=== PATIENT | female | born 1955 | race Caucasian/White ===

== ENCOUNTER 2023-04-14 18:58 | Observation (INO) | payer MEDICARE ==
[2023-04-14] MEDS ORDERED: Narcan 0.4 MG/ML IV ONE (19:00)
[2023-04-14] MEDS ORDERED: Narcan 0.4 MG/ML ONE (19:05)
[2023-04-14] MEDS ORDERED: Zofran 4 MG/2 ML VIAL IV ONE (19:14)
--- NOTE | 2023-04-14 19:14 | ERPHSYRPT ---
- History of Present Illness Time Seen by Provider: 04/14/23 19:10 Source: patient, EMS Exam Limitations: clinical condition Physician History: This is a 68-year-old white female patient brought into the emergency department by the paramedics. They provided independent medical history. Patient was called out to go home where this patient is living because of an unresponsive patient. Paramedics brought the patient into the emergency department where she is still mildly lethargic but does wake up to answer questions. She denies illicit drug use. She states that she took her usual medication of Fioricet but no other medications. She is adamant that she is not suicidal or homicidal however the note that was a left and brought in by the paramedics states and is interpreted by me, as a suicidal note. Patient states that in August 2022 she fell hitting her head and there are 2 subdural hematomas. Since that period of time she has had a shunt placed and periodically has cerebrospinal fluid coming from her right nostril which she had today. She did fall and hit her head on the stairs today. Patient is new in town having moved here approximately the [facility] week of March 2023. Timing/Duration: today Severity: moderate Associated Symptoms: weakness, other (Lethargy) Allergies/Adverse Reactions: metronidazole [From Flagyl] Allergy (Severe, Verified 04/14/23 20:32) ceftriaxone [From Rocephin] Allergy (Unknown, Verified 04/14/23 20:38) pt reports an allergy to rocephin, states she is unsure of the reaction Macrolide Antibiotics Allergy (Unknown, Verified 04/14/23 20:32) Sulfa (Sulfonamide Antibiotics) Allergy (Unknown, Verified 04/14/23 19:56) Home Medications: Butalb/Acetaminophen/Caffeine [Apitfk-Wldnlrru-Qhms 50-325-40] 1 each PO TID PRN 04/15/23 [History] Cyanocobalamin 1000 Mcg/ml [Cyanocobalamin B-12 1000 MCG/ML] 1,000 mcg IJ UD 04/15/23 [History] EPINEPHrine [Auvi-Q] 1 pen IJ UD 04/15/23 [History] Sumatriptan Succinate [Imitrex] 6 mg SQ UD PRN 04/15/23 [History] Travel Risk - International Travel Have you traveled outside of the country in past 3 weeks: No - Coronavirus Screening Are you exhibiting any of the following symptoms?: No Close contact with a COVID-19 positive Pt in past 14-21 Days: No - Review of Systems Constitutional: No Symptoms Eyes: No Symptoms Ears, Nose, & Throat: No Symptoms Respiratory: No Symptoms Cardiac: No Symptoms Abdominal/Gastrointestinal: No Symptoms Genitourinary Symptoms: No Symptoms Musculoskeletal: No Symptoms Skin: No Symptoms Neurological: Lethargy (Mild and arousable) Psychological: Anxiety, Depression Endocrine: No Symptoms Hematologic/Lymphatic: No Symptoms Immunological/Allergic: No Symptoms All Other Systems: Reviewed and Negative - Past Medical History Pertinent Past Medical History: Yes - Past Surgical History Past Surgical History: Yes - Nursing Vital Signs Nursing Vital Signs: Initial Vital Signs Pulse Rate 79 04/14/23 19:02 Respiratory Rate 11 L 04/14/23 19:02 Blood Pressure 179/92 04/14/23 19:02 O2 Sat by Pulse Oximetry 97 04/14/23 19:02 Pain Scale Pain Intensity 0 - Physical Exam General Appearance: no apparent distress, alert, lethargy (Mild but arousable) Eye Exam: PERRL/EOMI, eyes nml inspection Ears, Nose, Throat Exam: normal ENT inspection, TMs normal, moist mucous membranes Neck Exam: normal inspection, non-tender, supple, full range of motion Respiratory Exam: normal breath sounds, lungs clear, airway intact, No chest tenderness, No respiratory distress Cardiovascular Exam: regular rate/rhythm, normal heart sounds, normal peripheral pulses Gastrointestinal/Abdomen Exam: soft, normal bowel sounds, No tenderness Pelvic Exam: not done Rectal Exam: not done Back Exam: normal inspection, normal range of motion, No CVA tenderness, No vertebral tenderness Extremity Exam: normal inspection, normal range of motion, pelvis stable Neurologic Exam: oriented x 3, cooperative, 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, other (Rousable but mildly lethargic) Lymphatic Exam: No adenopathy SpO2 Interpretation: normal O2 Delivery: Room Air - Course Nursing assessment & vital signs reviewed: Yes EKG Interpreted by Me: RATE ([id number]), Sinus Rhythm, NORMAL AXIS, NORMAL INTERVALS, NORMAL QRS, NORMAL ST-T, Other (No acute ischemic changes on today's twelve-lead EKG.) Ordered Tests: Medication Summary Discontinued Medications Generic Name Dose Route Start Last Admin Trade Name Freq PRN Reason Stop Dose Admin Acetaminophen 325 mg 04/15/23 01:37 Acetaminophen 325 Mg Tablet PO 05/15/23 01:36 Q4H PRN PRN PAIN, FEVER, HEADACHE Acetaminophen 650 mg 04/15/23 02:05 Acetaminophen 325 Mg Tablet PO 05/15/23 02:04 Q4H PRN PRN PAIN, FEVER, HEADACHE Hydrocodone Bitart/Acetaminophen 1 tab 04/14/23 22:00 04/14/23 22:04 Hydrocodone/Apap 5/325 1 Tab Tablet PO 04/14/23 22:01 1 tab STAT ONE Administration Hydrocodone Bitart/Acetaminophen Confirm 04/14/23 22:03 Hydrocodone/Apap 5/325 1 Tab Tablet Administered 04/14/23 22:04 Dose 1 tab .ROUTE .STK-MED ONE Hydrocodone Bitart/Acetaminophen 1 tab 04/15/23 02:05 Hydrocodone/Apap 5/325 1 Tab Tablet PO 04/20/23 02:04 QID PRN PRN PAIN Cyanocobalamin 1,000 mcg 04/24/23 10:00 Cyanocobalamin 1000 Mcg/Ml Vial IJ 05/24/23 09:59 UD DANI Enoxaparin Sodium 40 mg 04/15/23 10:00 Enoxaparin Sodium 40 Mg/0.4 Ml Syringe SQ 05/15/23 09:59 DAILY DANI Sodium Chloride 1,000 mls @ 100 mls/hr 04/14/23 19:15 04/14/23 19:50 Sodium Chloride 0.9% 1000 Ml IV 05/14/23 19:14 100 mls/hr .Q10H DANI Administration Ceftriaxone Sodium/Dextrose 1 g in 50 mls @ 100 mls/hr 04/14/23 19:20 04/14/23 20:45 Rocephin 1 Gm-D5w 50 Ml Bag IV 04/14/23 19:49 Not Given STAT STA Ceftriaxone Sodium/Dextrose Confirm 04/14/23 19:48 Rocephin 1 Gm-D5w 50 Ml Bag Administered 04/14/23 19:49 Dose 1 g in 50 mls @ ud IV .STK-MED ONE Levofloxacin/Dextrose 500 mg in 100 mls @ 100 mls/hr 04/14/23 20:44 04/14/23 22:51 Levofloxacin 500mg/100ml D5w IV 04/14/23 21:43 Infused STAT STA Infusion Levofloxacin/Dextrose Confirm 04/14/23 20:47 Levofloxacin 500mg/100ml D5w Administered 04/14/23 20:48 Dose 500 mg in 100 mls @ ud IV .STK-MED ONE Sodium Chloride 1,000 mls @ 50 mls/hr 04/15/23 01:45 04/15/23 04:30 Sodium Chloride 0.9% 1000 Ml IV 05/15/23 01:44 Not Given .Q20H DANI Sodium Chloride 1,000 mls @ 30 mls/hr 04/15/23 02:05 04/15/23 03:46 Sodium Chloride 0.9% 1000 Ml IV 05/15/23 02:04 30 mls/hr .Q24H DANI Administration Sodium Chloride Confirm 04/14/23 19:48 Sodium Chloride 0.9% 1000 Ml Administered 04/14/23 19:49 Dose 1,000 mls @ ud .ROUTE .STK-MED ONE Labetalol HCl 10 mg 04/15/23 01:39 Labetalol Hcl 100 Mg/20 Ml Mdv IV 05/15/23 01:38 PRN PRN HYPERTENSION Metoprolol Tartrate 5 mg 04/15/23 00:09 04/15/23 00:34 Metoprolol Tartrate 5 Mg/5 Ml Vial IV 04/15/23 00:10 Not Given STAT ONE Metoprolol Tartrate Confirm 04/15/23 00:29 Metoprolol Tartrate 5 Mg/5 Ml Vial Administered 04/15/23 00:30 Dose 5 mg IV .STK-MED ONE Metoprolol Tartrate 5 mg 04/15/23 02:05 Metoprolol Tartrate 5 Mg/5 Ml Vial IV 05/15/23 02:04 Q4H PRN PRN ELEVATED BLOOD PRESSURE Miscellaneous Information 1 each 04/15/23 11:45 Medication Intervention 1 Each Each 05/15/23 11:44 .RN TO CHECK DANI Naloxone HCl Confirm 04/14/23 19:05 Naloxone Hcl 0.4 Mg/Ml Ml Administered 04/14/23 19:06 Dose 0.4 mg .ROUTE .STK-MED ONE Naloxone HCl 0.4 mg 04/14/23 19:00 04/14/23 19:00 Naloxone Hcl 0.4 Mg/Ml Ml IV 04/14/23 19:01 0.4 mg STAT ONE Administration Ondansetron HCl 4 mg 04/14/23 19:14 04/14/23 19:50 Ondansetron Hcl 4 Mg/2 Ml Vial IV 04/14/23 19:15 4 mg STAT ONE Administration Ondansetron HCl Confirm 04/14/23 19:48 Ondansetron Hcl 4 Mg/2 Ml Vial Administered 04/14/23 19:49 Dose 4 mg .ROUTE .STK-MED ONE Ondansetron HCl 4 mg 04/15/23 02:05 Ondansetron Hcl 4 Mg/2 Ml Vial IV 05/15/23 02:04 Q6H PRN PRN NAUSEA/VOMITING Potassium Chloride 20 meq 04/15/23 01:40 04/15/23 04:30 Potassium Chloride Tab 10 Meq Tab PO 04/15/23 01:41 Not Given STAT ONE Potassium Chloride 20 meq 04/15/23 03:49 04/15/23 03:52 Potassium Chloride Tab 10 Meq Tab PO 04/15/23 03:50 20 meq STAT ONE Administration Sumatriptan Succinate 6 mg 04/15/23 11:30 Sumatriptan Succinate 6 Mg/0.5 Ml Vial SQ 05/15/23 11:29 UD PRN PAIN Lab/Rad Data: Laboratory Result Diagrams 04/14/23 19:45 04/14/23 19:45 Laboratory Results 04/14/23 04/14/23 04/14/23 Range/Units 19:45 19:45 19:45 WBC 7.3 (4.0-10.5) x10^3/uL RBC 4.91 (4.1-5.4) x10^6/uL Hgb 14.2 (12.0-16.0) g/dL Hct 44.3 (35-47) % MCV 90.2 (78-100) fL MCH 28.9 (26-32) pg MCHC 32.1 (32-36) g/dL RDW 12.8 (11.5-14.0) % Plt Count 378 (150-450) x10^3/uL MPV 9.6 (7.5-11.0) fL Gran % 50.8 (36.0-66.0) % Immature Gran % (Auto) 0.4 (0.00-0.4) % Nucleat RBC Rel Count 0.0 (0.00-0.1) % Eos # (Auto) 0.44 (0-0.5) x10^3/uL Immature Gran # (Auto) 0.03 (0.00-0.03) x10^3u/L Absolute Lymphs (auto) 2.61 (1.0-4.6) x10^3/uL Absolute Monos (auto) 0.43 (0.0-1.3) x10^3/uL Absolute Nucleated RBC 0.00 (0.00-0.01) x10^3u/L Lymphocytes % 35.8 (24.0-44.0) % Monocytes % 5.9 (0.0-12.0) % Eosinophils % 6.0 H (0.00-5.0) % Basophils % 1.1 (0.0-0.4) % Absolute Granulocytes 3.71 (1.4-6.9) x10^3/uL Basophils # 0.08 (0-0.4) x10^3/uL Puncture Site pCO2 (35-45) mmHg pO2 (75-100) mmHg Base Excess (-2.0-2.0) O2 Saturation (94-100) g/dF ABG pH (7.35-7.45) ABG HCO3 (22-28) ABG O2 Sat (Measured) (95-100) % Juan Test A-a Gradient a/A Ratio Hemoglobin Carboxyhemoglobin (0.0-6.9) % THgb Methemoglobin (1.4-1.5) % Potassium 3.4 L (3.5-5.1) Temperature C POC O2 Flow Rate % Sodium 140 (137-145) mmol/L Chloride 106 (98-107) mmol/L Carbon Dioxide 25 (22-30) mmol/L Anion Gap 11.8 (5-15) MEQ/L BUN 9 (7-17) mg/dL Creatinine 0.56 (0.52-1.04) mg/dL Estimated GFR > 60.0 ML/MIN Glucose 107 H (74-106) mg/dL Calcium 8.8 (8.4-10.2) mg/dL Total Bilirubin 0.30 (0.2-1.3) mg/dL AST 20 (14-36) U/L ALT 18 (0-35) U/L Alkaline Phosphatase 106 (38-126) U/L Ammonia < 9 L (9-30) umol/L Serum Total Protein 6.6 (6.3-8.2) g/dL Albumin 3.8 (3.5-5.0) g/dL Urine Color (Yellow) Urine Appearance (Clear) Urine pH (4.6-8.0) Ur Specific [place] (1.005-1.030) Urine Protein (Negative) Urine Glucose (UA) (Negative) mg/dL Urine Ketones (Negative) Urine Blood (Negative) Urine Nitrite (Negative) Urine Bilirubin (Negative) Urine Urobilinogen (0.2) mg/dL Ur Leukocyte Esterase (Negative) U Hyaline Cast (Auto) (0-2) /LPF Urine Microscopic RBC (0-5) /HPF Urine Microscopic WBC (0-5) /HPF Ur Epithelial Cells (None Seen) /HPF Urine Bacteria (None Seen) /HPF Urine Culture Reflexed (NO) Salicylates 3.0 (2-20) mg/dL Urine Opiates Level (NEGATIVE) Ur Methadone (NEGATIVE) Acetaminophen < 10 L (10-30) ug/ml Urine Barbiturates (NEGATIVE) Ur Phencyclidine (PCP) (NEGATIVE) Urine Amphetamine (NEGATIVE) U Benzodiazepine Level (NEGATIVE) Urine Cocaine (NEGATIVE) Urine Marijuana (THC) (NEGATIVE) Ethyl Alcohol < 10 (0-10) mg/dL 04/14/23 04/14/23 04/14/23 Range/Units 19:22 19:21 19:13 WBC (4.0-10.5) x10^3/uL RBC (4.1-5.4) x10^6/uL Hgb (12.0-16.0) g/dL Hct (35-47) % MCV (78-100) fL MCH (26-32) pg MCHC (32-36) g/dL RDW (11.5-14.0) % Plt Count (150-450) x10^3/uL MPV (7.5-11.0) fL Gran % (36.0-66.0) % Immature Gran % (Auto) (0.00-0.4) % Nucleat RBC Rel Count (0.00-0.1) % Eos # (Auto) (0-0.5) x10^3/uL Immature Gran # (Auto) (0.00-0.03) x10^3u/L Absolute Lymphs (auto) (1.0-4.6) x10^3/uL Absolute Monos (auto) (0.0-1.3) x10^3/uL Absolute Nucleated RBC (0.00-0.01) x10^3u/L Lymphocytes % (24.0-44.0) % Monocytes % (0.0-12.0) % Eosinophils % (0.00-5.0) % Basophils % (0.0-0.4) % Absolute Granulocytes (1.4-6.9) x10^3/uL Basophils # (0-0.4) x10^3/uL Puncture Site RIGHT RADIAL pCO2 39 (35-45) mmHg pO2 102 H (75-100) mmHg Base Excess 2.3 H (-2.0-2.0) O2 Saturation 97.3 (94-100) g/dF ABG pH 7.44 (7.35-7.45) ABG HCO3 26.5 (22-28) ABG O2 Sat (Measured) 98.8 (95-100) % Juan Test YES A-a Gradient -1 a/A Ratio 1.01 Hemoglobin 14.1 Carboxyhemoglobin 0.4 (0.0-6.9) % THgb Methemoglobin 1.1 L (1.4-1.5) % Potassium 3.4 L (3.5-5.1) Temperature 37.0 C POC O2 Flow Rate 21 % Sodium (137-145) mmol/L Chloride (98-107) mmol/L Carbon Dioxide (22-30) mmol/L Anion Gap (5-15) MEQ/L BUN (7-17) mg/dL Creatinine (0.52-1.04) mg/dL Estimated GFR ML/MIN Glucose (74-106) mg/dL Calcium (8.4-10.2) mg/dL Total Bilirubin (0.2-1.3) mg/dL AST (14-36) U/L ALT (0-35) U/L Alkaline Phosphatase (38-126) U/L Ammonia (9-30) umol/L Serum Total Protein (6.3-8.2) g/dL Albumin (3.5-5.0) g/dL Urine Color Yellow (Yellow) Urine Appearance Clear (Clear) Urine pH 6.5 (4.6-8.0) Ur Specific [place] 1.010 (1.005-1.030) Urine Protein Negative (Negative) Urine Glucose (UA) Negative (Negative) mg/dL Urine Ketones Negative (Negative) Urine Blood Moderate A (Negative) Urine Nitrite Negative (Negative) Urine Bilirubin Negative (Negative) Urine Urobilinogen 0.2 (0.2) mg/dL Ur Leukocyte Esterase Negative (Negative) U Hyaline Cast (Auto) NONE SEEN (0-2) /LPF Urine Microscopic RBC 11-20 A (0-5) /HPF Urine Microscopic WBC 0-2 (0-5) /HPF Ur Epithelial Cells None Seen (None Seen) /HPF Urine Bacteria None Seen (None Seen) /HPF Urine Culture Reflexed ORDERED SEPARATELY (NO) Salicylates (2-20) mg/dL Urine Opiates Level NEGATIVE (NEGATIVE) Ur Methadone NEGATIVE (NEGATIVE) Acetaminophen (10-30) ug/ml Urine Barbiturates POSITIVE (NEGATIVE) Ur Phencyclidine (PCP) NEGATIVE (NEGATIVE) Urine Amphetamine NEGATIVE (NEGATIVE) U Benzodiazepine Level NEGATIVE (NEGATIVE) Urine Cocaine NEGATIVE (NEGATIVE) Urine Marijuana (THC) NEGATIVE (NEGATIVE) Ethyl Alcohol (0-10) mg/dL - Progress Progress: improved Progress Note: 04/14/23 19:44 This patient's medical issue is 1 of moderate to high complexity. Level complexity in the work-up performed is based on the patient's past medical history, review of the patient's medication list, review of the patient's drug allergy list, history of present illness, and physical findings on examination. This patient's work-up includes a CT scan of the head, twelve-lead EKG, placement of intravenous line, infusion of normal saline solution, urinalysis, placement of Perez catheter, CBC, CMP, ammonia level. Patient is IDed into the emergency department by law enforcement. Patient will likely need to be placed in a medpsych unit facility. 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 This occurred again today. I wanted to provide her with prophylaxis treatment with Rocephin. Patient states that she was not certain but she thinks that she cannot take Rocephin. She is fine with quinolones and Keflex. Therefore, we will not provide her with Rocephin intravenously but provide her with Levaquin 500 mg intravenously. 04/14/23 21:[address] scan of the cervical spine without contrast was interpreted by the radi ologist and I reviewed the impression. There is minimal degenerative disc disease present. There is no evidence of acute fracture or subluxation. CT scan of the head without contrast was performed. There are no comparison films. This study was interpreted by the radiologist. There is evidence of a right ventricular shunt catheter in place. There is no obvious complications. There is pansinusitis present. There are no acute intracranial abnormalities mentioned by the radiologist 04/15/23 01:33 This patient was evaluated by [facility] via laboratory data review, history and physical exam review by mental health provider Kasandra and staffed by Dr. Maloney. They feel that the patient does have suicidal ideation and do not want the patient to go home at this time. They feel the patient is medically unstable secondary to blood pressure readings from 150s to 170s systolically. They would like the patient to be placed in observation and blood pressure under better control. I spoke with telehospitalist Dr. Farmer who agrees to place the patient in observation. Patient will be reevaluated by [facility] in the morning of 04/15/2023. Counseled pt/family regarding: lab results, diagnosis, rad results Medical Desision Making - Independent Historian Additional History obtained from: Per Diem Clerk/EMT (And law enforcement) - Discussion of managment Care discussed with:: hospitalist (Dr. Farmer) Reviewed:: Test results, Need for additional workup Agreed on:: place in obs - Diagnostic Testing Diagnostic test were ordered, analyzed, and reviewed by me: Yes Radiological Interpretation: Reviewed by me, Teleradiologist Report - Risk of complications The pt has a high risk of morbidity or mortality based on: Decision regarding hospitilization or escalation of hosp level of care - Departure Departure Disposition: Observation Clinical Impression: Suicidal ideation, Hypertension Condition: Stable Critical Care Time: No
[2023-04-14] MEDS ORDERED: Sodium Chloride 0.9% 1000 ML 1,000 ML IV SCH (19:15)
[2023-04-14] MEDS ORDERED: ROCEPHIN 1 Gm-D5w 50 ml Bag** 1 G/50 ML IVPB IV STA (19:20)
[2023-04-14 19:22] LABS: A-aADO2 -1; ABG HEMOGLOBIN 14.1; ABG POTASSIUM 3.4 (3.5-5.1); ARTERIAL BLD GAS O2 SATURATION 98.8 % (95-100); ARTERIAL BLOOD GAS BASE EXCESS 2.3 (-2.0-2.0); ARTERIAL BLOOD GAS FIO2 21 %; ARTERIAL BLOOD GAS PCO2 39 mmHg (35-45); ARTERIAL BLOOD GAS PO2 102 mmHg (75-100); ARTERIAL BLOOD GAS pH 7.44 (7.35-7.45); CARBOXYHEMOGLOBIN 0.4 % THgb (0.0-6.9); HCO3- 26.5 (22-28); HGB O2 SAT 97.3 g/dF (94-100); Methhemoglobin 1.1 % (1.4-1.5); paO2 pAO1 1.01
[2023-04-14 19:24] LABS: Appearance Clear (Clear); Bacteria None Seen /HPF (None Seen); Bilirubin Negative (Negative); Blood Moderate (Negative); Epithelial Cells None Seen /HPF (None Seen); Glucose, Urine Negative (Negative); Hyaline Casts NONE SEEN /LPF (0-2); Ketones Negative (Negative); Leukocyte Esterase Negative (Negative); Nitrite Negative (Negative); Ph 6.5 (4.6-8.0); Protein,Urine Dip Negative (Negative); Urobilinogen 0.2 mg/dL (0.2); WBC 0-2 /HPF (0-5)
[2023-04-14 19:25] LABS: ADD URINE CULTURE? ORDERED SEPARATELY (NO)
[2023-04-14] MEDS ORDERED: Sodium Chloride 0.9% 1000 ML 1,000 ML ONE (19:48)
[2023-04-14] MEDS ORDERED: Zofran 4 MG/2 ML VIAL ONE (19:48)
[2023-04-14] MEDS ORDERED: ROCEPHIN 1 Gm-D5w 50 ml Bag** 0 G/0 ML IVPB IV ONE (19:48)
[2023-04-14 19:57] LABS: Absolute Neutrophil Ct (ANC) 3.71 x10^3/uL (1.4-6.9); BASOPHIL % 1.1 % (0.0-0.4); Basophil (Absolute #) 0.08 x10^3/uL (0-0.4); Eosinophil (Absolute #) 0.44 x10^3/uL (0-0.5); Hematocrit 44.3 % (35-47); Hemoglobin 14.2 g/dL (12.0-16.0); IMMATURE GRAN # 0.03 x10^3u/L (0.00-0.03); IMMATURE GRAN % 0.4 % (0.00-0.4); Lymphocyte (Absolute #) 2.61 x10^3/uL (1.0-4.6); Lymphocytes % 35.8 % (24.0-44.0); Mean Cell Volume 90.2 fL (78-100); Mean Corpuscular Hemoglobin 28.9 pg (26-32); Mean Corpuscular Hgb Concent. 32.1 g/dL (32-36); Mean Platelet Volume 9.6 fL (7.5-11.0); Monocyte (Absolute #) 0.43 x10^3/uL (0.0-1.3); Monocytes % 5.9 % (0.0-12.0); Neutrophil % 50.8 % (36.0-66.0); Platelet Count 378 x10^3/uL (150-450); Red Blood Count 4.91 x10^6/uL (4.1-5.4); Red Cell Distribution Width 12.8 % (11.5-14.0); White Blood Count 7.3 x10^3/uL (4.0-10.5)
[2023-04-14 20:10] LABS: Amphetamine,Urine NEGATIVE (NEGATIVE); Barbiturate,Urine POSITIVE (NEGATIVE); Benzodiazepine,Urine NEGATIVE (NEGATIVE); Cocaine,Urine NEGATIVE (NEGATIVE); Methadone,Urine NEGATIVE (NEGATIVE); Opiate,Urine NEGATIVE (NEGATIVE); PCP,Urine NEGATIVE (NEGATIVE); THC,Urine NEGATIVE (NEGATIVE)
[2023-04-14 20:11] LABS: ACETAMINOPHEN < 10 ug/ml (10-30); ALBUMIN 3.8 g/dL (3.5-5.0); ALKALINE PHOSPHATASE 106 U/L (38-126); ANION GAP 11.8 MEQ/L (5-15); BLOOD UREA NITROGEN 9 mg/dL (7-17); CHLORIDE 106 mmol/L (98-107); Calcium 8.8 mg/dL (8.4-10.2); Carbon Dioxide 25 mmol/L (22-30); Creatinine 1 0.56 mg/dL (0.52-1.04); EST GLOMERULAR FILTRATION RATE > 60.0 ML/MIN; ETHYL ALCOHOL < 10 mg/dL (0-10); Glucose 107 mg/dL (74-106); Potassium 3.4 mmol/L (3.5-5.1); SGOT/AST 20 U/L (14-36); SGPT/ALT 18 U/L (0-35); SODIUM 140 mmol/L (137-145); Total Protein 6.6 g/dL (6.3-8.2)
[2023-04-14] MEDS ORDERED: Levofloxacin 500MG/100ML D5W 500 MG/100 ML BAG IV STA (20:44)
[2023-04-14] MEDS ORDERED: Levofloxacin 500MG/100ML D5W 500 MG/100 ML BAG IV ONE (20:47)
[2023-04-14] MEDS ORDERED: NORCO 5/325 MG PO ONE (22:00)
[2023-04-14] MEDS ORDERED: NORCO 5/325 MG ONE (22:03)
[2023-04-15] MEDS ORDERED: LOPRESSOR INJECTION IV ONE (00:29)
[2023-04-15] MEDS: LOPRESSOR INJECTION IV ONE ×2 (00:32→00:34)
[2023-04-15] MEDS ORDERED: TYLENOL 325 MG PO PRN ×2 (01:37→02:05)
[2023-04-15] MEDS ORDERED: TRANDATE 100 MG/20 ML MDV FOR DRIP IV PRN (01:39)
[2023-04-15] MEDS ORDERED: Klor Con PO ONE ×2 (01:40→03:49)
[2023-04-15] MEDS ORDERED: Sodium Chloride 0.9% 1000 ML 1,000 ML IV SCH ×2 (01:45→02:05)
--- NOTE | 2023-04-15 01:46 | PCM.HP ---
History of Present Illness - Chief Complaint Chief Complaint: Suicidal ideation History of Present Illness: is a 68 year old female with hx of subdural hematomas she sustained back in Aug 2022 after a fall and had shunt placed for these hematomas, came in via EMS today AMS and she left a note stating she wants to end it all. In ER, she was initially lethargic but then came to, able to communicate and interact. She is adamant she is not suicidal. She states she is tired of these headaches and she is upset about these. She also report falling and hitting her head this AM. Imaging in ER negative for anything new, nor acute. Tele-psych evaluated her and thinks she needs to stay, but she can't go to in-patient psych because her SBP was elavted 150-170s. So, they want her admitted for obs and once BP is better, they will re-eval in AM Pt has no other complaint at this time - Review of Systems Constitutional: No Symptoms Eyes: No Symptoms Ears, Nose, & Throat: No Symptoms Respiratory: No Symptoms Cardiac: No Symptoms Abdominal/Gastrointestinal: No Symptoms Genitourinary Symptoms: No Symptoms Musculoskeletal: No Symptoms Skin: No Symptoms Neurological: Headache, Lethargy Psychological: Depression, Suicidal Ideations Endocrine: No Symptoms Hematologic/Lymphatic: No Symptoms Immunological/Allergic: No Symptoms Medications & Allergies Home Medications: Home Medication List Unobtainable 04/15/23 [History Confirmed 04/15/23] Allergies/Adverse Reactions: Allergies Allergy/AdvReac Type Severity Reaction Status Date / Time metronidazole [From Flagyl] Allergy Severe Verified 04/14/23 20:32 ceftriaxone [From Rocephin] Allergy Unknown Verified 04/14/23 20:38 Macrolide Antibiotics Allergy Unknown Verified 04/14/23 20:32 Sulfa (Sulfonamide Allergy Unknown Verified 04/14/23 19:56 Antibiotics) - Past Medical History Past Medical History: Yes Neurological History: Other ENT History: No Pertinent History Cardiac History: No Pertinent History Respiratory History: No Pertinent History Endocrine Medical History: No Pertinent History Musculoskelatal History: No Pertinent History GI Medical History: No Pertinent History History: No Pertinent History Pyscho-Social History: No Pertinent History Reproductive Disorders: No Pertinent History Comment: Patient states she has a shunt in the back of head and two subdural hematoa to back of head from fall in August. - Past Surgical History Past Surgical History: Yes Neuro Surgical History: No Pertinent History Cardiac History: No Pertinent History Respiratory Surgery: No Pertinent History GI Surgical History: No Pertinent History Genitourinary Surgical Hx: No Pertinent History Musculskeletal Surgical Hx: No Pertinent History Female Surgical History: Mastectomy Other Surgical History: brain surgery, achilles tendon repair. 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 abebe radical masectomy from breast cancer - Social History Smoking Status: Never smoker Exposure to second hand smoke: No Alcohol: None Drug Use: marijuana Significant Family History: no pertinent family hx - Physical Exam Vital Signs: Vital Signs - 24 hr Temp Pulse Resp BP BP Pulse Ox 04/15/23 00:46 163/75 98 04/15/23 00:30 138/68 04/15/23 00:15 153/70 99 04/15/23 00:00 78 152/70 99 04/14/23 23:45 165/77 98 04/14/23 23:30 154/76 96 04/14/23 23:15 180/78 98 04/14/23 23:00 175/82 96 04/14/23 22:45 188/89 97 04/14/23 22:30 63 187/117 98 04/14/23 22:16 175/119 99 04/14/23 21:45 173/106 99 04/14/23 21:30 61 14 169/87 99 04/14/23 20:46 97.2 F 84 15 154/75 99 04/14/23 20:31 72 12 178/73 04/14/23 20:16 81 22 186/73 97 04/14/23 20:15 74 13 04/14/23 20:10 73 12 04/14/23 20:07 74 5 L 96 04/14/23 20:00 96.8 F 78 20 186/73 97 04/14/23 19:47 75 10 L 04/14/23 19:31 72 10 L 165/92 04/14/23 19:23 81 16 167/78 93 L 04/14/23 19:05 92 H 19 179/92 99 04/14/23 19:02 79 11 L 179/92 97 General Appearance: no apparent distress Neurologic Exam: alert, oriented x 3, cooperative Eye Exam: PERRL/EOMI, eyes nml inspection Ears, Nose, Throat Exam: normal ENT inspection Neck Exam: normal inspection, non-tender, supple, full range of motion Respiratory Exam: normal breath sounds Cardiovascular Exam: regular rate/rhythm, normal heart sounds Gastrointestinal/Abdomen Exam: soft, normal bowel sounds Pelvic Exam: not done Rectal Exam: deferred Back Exam: normal inspection Extremity Exam: normal inspection Skin Exam: normal color Results - Labs Lab/Micro Results: Lab Results-Last 24 Hours 04/14/23 04/14/23 04/14/23 Range/Units 19:13 19:21 19:22 WBC (4.0-10.5) x10^3/uL RBC (4.1-5.4) x10^6/uL Hgb (12.0-16.0) g/dL Hct (35-47) % MCV (78-100) fL MCH (26-32) pg MCHC (32-36) g/dL RDW (11.5-14.0) % Plt Count (150-450) x10^3/uL MPV (7.5-11.0) fL Gran % (36.0-66.0) % Immature Gran % (Auto) (0.00-0.4) % Nucleat RBC Rel Count (0.00-0.1) % Eos # (Auto) (0-0.5) x10^3/uL Immature Gran # (Auto) (0.00-0.03) x10^3u/L Absolute Lymphs (auto) (1.0-4.6) x10^3/uL Absolute Monos (auto) (0.0-1.3) x10^3/uL Absolute Nucleated RBC (0.00-0.01) x10^3u/L Lymphocytes % (24.0-44.0) % Monocytes % (0.0-12.0) % Eosinophils % (0.00-5.0) % Basophils % (0.0-0.4) % Absolute Granulocytes (1.4-6.9) x10^3/uL Basophils # (0-0.4) x10^3/uL Puncture Site Pending pCO2 39 (35-45) mmHg pO2 102 H (75-100) mmHg Base Excess 2.3 H (-2.0-2.0) O2 Saturation 97.3 (94-100) g/dF ABG pH 7.44 (7.35-7.45) ABG HCO3 26.5 (22-28) ABG O2 Sat (Measured) 98.8 (95-100) % Juan Test Pending A-a Gradient -1 a/A Ratio 1.01 Hemoglobin 14.1 Carboxyhemoglobin 0.4 (0.0-6.9) % THgb Methemoglobin 1.1 L (1.4-1.5) % Potassium 3.4 L (3.5-5.1) Temperature 37.0 C POC O2 Flow Rate 21 % Sodium (137-145) mmol/L Chloride (98-107) mmol/L Carbon Dioxide (22-30) mmol/L Anion Gap (5-15) MEQ/L BUN (7-17) mg/dL Creatinine (0.52-1.04) mg/dL Estimated GFR ML/MIN Glucose (74-106) mg/dL Calcium (8.4-10.2) mg/dL Total Bilirubin (0.2-1.3) mg/dL AST (14-36) U/L ALT (0-35) U/L Alkaline Phosphatase (38-126) U/L Ammonia (9-30) umol/L Serum Total Protein (6.3-8.2) g/dL Albumin (3.5-5.0) g/dL Urine Color Yellow (Yellow) Urine Appearance Clear (Clear) Urine pH 6.5 (4.6-8.0) Ur Specific [place] 1.010 (1.005-1.030) Urine Protein Negative (Negative) Urine Glucose (UA) Negative (Negative) mg/dL Urine Ketones Negative (Negative) Urine Blood Moderate A (Negative) Urine Nitrite Negative (Negative) Urine Bilirubin Negative (Negative) Urine Urobilinogen 0.2 (0.2) mg/dL Ur Leukocyte Esterase Negative (Negative) U Hyaline Cast (Auto) NONE SEEN (0-2) /LPF Urine Microscopic RBC 11-20 A (0-5) /HPF Urine Microscopic WBC 0-2 (0-5) /HPF Ur Epithelial Cells None Seen (None Seen) /HPF Urine Bacteria None Seen (None Seen) /HPF Urine Culture Reflexed ORDERED SEPARATELY (NO) Salicylates (2-20) mg/dL Urine Opiates Level NEGATIVE (NEGATIVE) Ur Methadone NEGATIVE (NEGATIVE) Acetaminophen (10-30) ug/ml Urine Barbiturates POSITIVE (NEGATIVE) Ur Phencyclidine (PCP) NEGATIVE (NEGATIVE) Urine Amphetamine NEGATIVE (NEGATIVE) U Benzodiazepine Level NEGATIVE (NEGATIVE) Urine Cocaine NEGATIVE (NEGATIVE) Urine Marijuana (THC) NEGATIVE (NEGATIVE) Ethyl Alcohol (0-10) mg/dL 04/14/23 04/14/23 04/14/23 Range/Units 19:45 19:45 19:45 WBC 7.3 (4.0-10.5) x10^3/uL RBC 4.91 (4.1-5.4) x10^6/uL Hgb 14.2 (12.0-16.0) g/dL Hct 44.3 (35-47) % MCV 90.2 (78-100) fL MCH 28.9 (26-32) pg MCHC 32.1 (32-36) g/dL RDW 12.8 (11.5-14.0) % Plt Count 378 (150-450) x10^3/uL MPV 9.6 (7.5-11.0) fL Gran % 50.8 (36.0-66.0) % Immature Gran % (Auto) 0.4 (0.00-0.4) % Nucleat RBC Rel Count 0.0 (0.00-0.1) % Eos # (Auto) 0.44 (0-0.5) x10^3/uL Immature Gran # (Auto) 0.03 (0.00-0.03) x10^3u/L Absolute Lymphs (auto) 2.61 (1.0-4.6) x10^3/uL Absolute Monos (auto) 0.43 (0.0-1.3) x10^3/uL Absolute Nucleated RBC 0.00 (0.00-0.01) x10^3u/L Lymphocytes % 35.8 (24.0-44.0) % Monocytes % 5.9 (0.0-12.0) % Eosinophils % 6.0 H (0.00-5.0) % Basophils % 1.1 (0.0-0.4) % Absolute Granulocytes 3.71 (1.4-6.9) x10^3/uL Basophils # 0.08 (0-0.4) x10^3/uL Puncture Site pCO2 (35-45) mmHg pO2 (75-100) mmHg Base Excess (-2.0-2.0) O2 Saturation (94-100) g/dF ABG pH (7.35-7.45) ABG HCO3 (22-28) ABG O2 Sat (Measured) (95-100) % Juan Test A-a Gradient a/A Ratio Hemoglobin Carboxyhemoglobin (0.0-6.9) % THgb Methemoglobin (1.4-1.5) % Potassium 3.4 L (3.5-5.1) Temperature C POC O2 Flow Rate % Sodium 140 (137-145) mmol/L Chloride 106 (98-107) mmol/L Carbon Dioxide 25 (22-30) mmol/L Anion Gap 11.8 (5-15) MEQ/L BUN 9 (7-17) mg/dL Creatinine 0.56 (0.52-1.04) mg/dL Estimated GFR > 60.0 ML/MIN Glucose 107 H (74-106) mg/dL Calcium 8.8 (8.4-10.2) mg/dL Total Bilirubin 0.30 (0.2-1.3) mg/dL AST 20 (14-36) U/L ALT 18 (0-35) U/L Alkaline Phosphatase 106 (38-126) U/L Ammonia < 9 L (9-30) umol/L Serum Total Protein 6.6 (6.3-8.2) g/dL Albumin 3.8 (3.5-5.0) g/dL Urine Color (Yellow) Urine Appearance (Clear) Urine pH (4.6-8.0) Ur Specific [place] (1.005-1.030) Urine Protein (Negative) Urine Glucose (UA) (Negative) mg/dL Urine Ketones (Negative) Urine Blood (Negative) Urine Nitrite (Negative) Urine Bilirubin (Negative) Urine Urobilinogen (0.2) mg/dL Ur Leukocyte Esterase (Negative) U Hyaline Cast (Auto) (0-2) /LPF Urine Microscopic RBC (0-5) /HPF Urine Microscopic WBC (0-5) /HPF Ur Epithelial Cells (None Seen) /HPF Urine Bacteria (None Seen) /HPF Urine Culture Reflexed (NO) Salicylates 3.0 (2-20) mg/dL Urine Opiates Level (NEGATIVE) Ur Methadone (NEGATIVE) Acetaminophen < 10 L (10-30) ug/ml Urine Barbiturates (NEGATIVE) Ur Phencyclidine (PCP) (NEGATIVE) Urine Amphetamine (NEGATIVE) U Benzodiazepine Level (NEGATIVE) Urine Cocaine (NEGATIVE) Urine Marijuana (THC) (NEGATIVE) Ethyl Alcohol < 10 (0-10) mg/dL - Radiology Impressions Radiology Exams & Impressions: Radiology Procedures Category Date Time Status CERVICAL SPINE WO CONTRAST [CT] Stat Exams 04/14/23 20:01 Taken HEAD WITHOUT CONTRAST [CT] Stat Exams 04/14/23 20:01 Taken Assessment/Plan (1) Suicidal ideation Current Visit: Yes Status: Acute Assessment & Plan: Tele-psych evaluated and wanter her to stay for 23 hrs obs to get BP under control before re-evaluating her for inpt psych admission for SI. The pt left a note at home stating she wants to end it all, but has been adamant here about not wanting to harm herself. Will defer management to psych. Code(s): R45.851 - SUICIDAL IDEATIONS (2) Elevated blood pressure reading without diagnosis of hypertension Current Visit: Yes Status: Acute Assessment & Plan: BP was elevated on arrival, but has been better in the 130s SBP. Labetalol prn IV written. She will need OP follow-up to monitor BP Code(s): R03.0 - ELEVATED BLOOD-PRESSURE READING, W/O DIAGNOSIS OF HTN (3) Hypokalemia Current Visit: Yes Status: Acute Assessment & Plan: K is 3.4, mildly low. Gave 20meq po KCL x 1. Recheck in AM Code(s): E87.6 - HYPOKALEMIA Telemedicine Encounter - Telemedicine Encounter Telemedicine Encounter: The entirety of this encounter was performed via Telemedicine" Pt gave me verbal consent to have this telemedicine visit
[2023-04-15] MEDS ORDERED: Zofran 4 MG/2 ML VIAL IV PRN (02:05)
[2023-04-15] MEDS ORDERED: LOPRESSOR INJECTION IV PRN (02:05)
[2023-04-15] MEDS ORDERED: NORCO 5/325 MG PO PRN (02:05)
[2023-04-15 05:22] LABS: ABG SITE RIGHT RADIAL; ALLEN TEST OK? YES
[2023-04-15 05:59] LABS: Absolute Neutrophil Ct (ANC) 4.35 x10^3/uL (1.4-6.9); BASOPHIL % 0.9 % (0.0-0.4); Basophil (Absolute #) 0.07 x10^3/uL (0-0.4); Eosinophil % 5.9 % (0.00-5.0); Eosinophil (Absolute #) 0.44 x10^3/uL (0-0.5); Hematocrit 41.2 % (35-47); Hemoglobin 12.4 g/dL (12.0-16.0); IMMATURE GRAN # 0.04 x10^3u/L (0.00-0.03); IMMATURE GRAN % 0.5 % (0.00-0.4); Lymphocyte (Absolute #) 2.11 x10^3/uL (1.0-4.6); Lymphocytes % 28.1 % (24.0-44.0); Mean Cell Volume 95.8 fL (78-100); Mean Corpuscular Hemoglobin 28.8 pg (26-32); Mean Corpuscular Hgb Concent. 30.1 g/dL (32-36); Mean Platelet Volume 9.1 fL (7.5-11.0); Monocyte (Absolute #) 0.49 x10^3/uL (0.0-1.3); Monocytes % 6.5 % (0.0-12.0); Neutrophil % 58.1 % (36.0-66.0); Platelet Count 326 x10^3/uL (150-450); Red Cell Distribution Width 13.2 % (11.5-14.0); White Blood Count 7.5 x10^3/uL (4.0-10.5)
[2023-04-15 06:08] LABS: ANION GAP 14.9 MEQ/L (5-15); BLOOD UREA NITROGEN 9 mg/dL (7-17); CHLORIDE 106 mmol/L (98-107); Calcium 8.8 mg/dL (8.4-10.2); Carbon Dioxide 22 mmol/L (22-30); Creatinine 1 0.63 mg/dL (0.52-1.04); EST GLOMERULAR FILTRATION RATE > 60.0 ML/MIN; Glucose 121 mg/dL (74-106); Potassium 3.4 mmol/L (3.5-5.1); SODIUM 139 mmol/L (137-145)
--- NOTE | 2023-04-15 08:48 | XRAY ---
Indication: Altered mental status. Status post fall. Multiple contiguous axial images obtained through the head without contrast. Comparison: None Right ventricular shunt catheter in situ without hydrocephalus. No acute intracranial hemorrhage, abnormal extra-axial fluid collection, or mass effect. Puente-white matter differentiation preserved. Bony calvarium intact. Moderate/significant mucosal thickening all paranasal sinuses with sparing right maxillary sinus. Mastoid air cells are clear. Impression: Right ventricular shunt catheter in situ and pansinusitis. Remaining CT head without contrast exam is negative.
--- NOTE | 2023-04-15 08:50 | XRAY ---
Indication: Altered mental status. Status post fall. Multiple contiguous axial images obtained through the cervical spine. Sagittal and coronal reformatted images obtained. Comparison: None Axial images negative for acute fracture, suspicious bony lesions, or spinal canal stenosis. Minimal C4-C6 degenerative endplate spurring and mild bilateral degenerative facet arthropathy. Additional mild atlantoaxial degenerative changes. Sagittal and coronal reformatted images demonstrates normal lordosis with mild levoscoliosis. Vertebral body heights/disc spaces maintained. No acute compression fracture, subluxation, or jumped facet. Normal-appearing craniocervical junction. Visualized noncontrasted soft tissues demonstrates minimal left carotid calcifications and incompletely visualized right ventricular shunt catheter. Lung apices are clear. Impression: 1. Negative acute fracture/subluxation. 2. Chronic findings including multilevel degenerative changes, left carotid calcifications, and right ventricular shunt catheter in situ.
[2023-04-15] MEDS ORDERED: ENOXAPARIN SODIUM SQ SCH (10:00)
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
[2023-04-15] MEDS ORDERED: Imitrex 6 MG/0.5 ML SQ PRN (11:30)
[2023-04-15] MEDS ORDERED: MEDICATION INTERVENTION MC SCH (11:45)
--- NOTE | 2023-04-15 12:26 | PCM.DCORD ---
- Discharge Discharge Date: 04/15/23 Disposition: Home, Self-Care Condition: Stable Prescriptions: Continue Cyanocobalamin 1000 Mcg/ml [Cyanocobalamin B-12 1000 MCG/ML] 1,000 mcg IJ UD Sumatriptan Succinate [Imitrex] 6 mg SQ UD PRN PRN Reason: Pain Butalb/Acetaminophen/Caffeine [Upvqrv-Iijuufki-Yyph 50-325-40] 1 each PO TID PRN PRN Reason: Headache EPINEPHrine [Auvi-Q] 1 pen IJ UD Follow up with: YONI SAVAGE DO [Primary Care Provider] -
[2023-04-15 13:10] VITALS: BP 151/70; PULSE 77; RESP 16; TEMP 97.1; O2SAT 93
[2023-04-24] MEDS ORDERED: Cyanocobalamin B-12 1000 MCG/ML IJ SCH (10:00)
== END 2023-04-15 14:16 | disposition home or self-care (01) ==
LOC: ED 18:58 → MED SURG 04-15 01:57
PROVIDERS: ADMIT Internal Medicine; ATTEND Internal Medicine
DX: R45.851 Suicidal ideations (principal); R03.0 Elevated blood-pressure reading, without diagnosis of hypertension; E87.6 Hypokalemia; Z20.828 Contact with and (suspected) exposure to other viral communicable diseases; Z86.79 Personal history of other diseases of the circulatory system; Z85.3 Personal history of malignant neoplasm of breast
CPT/HCPCS: 36000; 36415; 36600; 51702; 70450; 72125; 80048; 80053; 80143; 80179; 80307; 81001; 82077; 82140; 82375; 82803; 84132; 85025; 87086; 90791; 93005; 93268; 96360; 96365; 96374; 96375; 99285; J0696; J1956; J2310; J2405; Q3014; A9270-GY; G0378